=== PATIENT | female | born 1995 | race African-American/Black ===

== ENCOUNTER 2016-12-08 09:26 | Emergency (ER) | payer OTHER ==
[~2016-12-08] VITALS: Ht 154.9 cm; Wt 88.5 kg
[~2016-12-08 09:26] MED LIST: ONDA4TAB10 PO
[2016-12-08 09:35] VITALS: BP 157/61
--- NOTE | 2016-12-08 09:51 | PHYS DOC ---
Past History Past Medical History: No Pertinent History Past Surgical History: No Surgical History Alcohol Use: None Drug Use: None Adult General Chief Complaint Chief Complaint: SHOULDER INJURY HPI HPI Patient is a 21-year-old female complaining of right shoulder pain after she had a fall on the stairs 2 days ago. She tripped over her cat. Since then, her right shoulder has been painful and she has had limited use of her right arm. The pain shoots from her shoulder down toward her elbow. She has not injured this shoulder or arm before. She is right-handed. She also complains of left wrist pain. Patient has a PCP but cannot recall the name as it changed recently. Review of Systems Review of Systems Constitutional: Denies fever or chills [] Musculoskeletal: Denies back pain or neck pain [] Allergies Allergies Allergies Coded Allergies Type Severity Reaction Last Updated Verified cephalexin Allergy Unknown 09/13/16 Yes Physical Exam Physical Exam Constitutional: Well developed, well nourished, no acute distress, non-toxic appearance. Alert, mentating normally, no acute distress. HENT: Normocephalic, atraumatic, bilateral external ears normal, nose normal. [] Eyes: conjunctiva normal, no discharge. [] Neck: Normal range of motion, no tenderness, supple, no stridor. [] Skin: Warm, dry, no erythema, no rash. [] Back: No tenderness, no CVA tenderness. [] Extremities: Right shoulder without deformity, without bony tenderness. There is a large ecchymosis/hematoma over the lateral deltoid which is tender. Range of motion testing is difficult due to pain. Humerus, elbow, wrist, forearm, hand nontender to palpation without deformity. Left upper extremity shoulder, elbow, forearm unremarkable. Left wrist has some mild tenderness over the palmar aspect of the distal radius. No deformity. No snuffbox tenderness. Neurologic: Alert and oriented X 3, normal motor function, normal sensory function, no focal deficits noted. [] EKG EKG [] Radiology/Procedures Radiology/Procedures X-rays of the right shoulder and left wrist read by the radiologist. No acute fracture or other bony abnormality. [] Course & Med Decision Making Course & Med Decision Making Pertinent Labs and Imaging studies reviewed. (See chart for details) [] Dragon Disclaimer Dragon Disclaimer This chart was dictated in whole or in part using Voice Recognition software in a busy, high-work load, and often noisy Emergency Department environment. It may contain unintended and wholly unrecognized errors or omissions. Departure Departure: Impression: Primary Impression: Contusion of right shoulder, initial encounter Additional Impression: Contusion of left wrist, initial encounter Referrals: RHEA BHAGAT (PCP) Patient Instructions: Contusion, [id number] Additional Instructions: As we discussed, you have a large bruise on your right shoulder which will be painful for a week or 2. As the bruise improves, you're right shoulder should return to normal and you should be able to move it and have good strength. If your shoulder is not improving after one week, see your doctor for recheck. If you have a rotator cuff injury, you need to see orthopedics, and your doctor can refer you if recheck of your shoulder is not normal. Ice 15-20 minutes out of every 1-2 hours. Ibuprofen 800 mg every 8 hours for pain. Problem Qualifiers TOMAS FULLER MD December 08, 2016 09:51
--- NOTE | 2016-12-08 10:20 | RAD ---
Indication: Pain after a fall 2 days ago. Technique: 3 views of the right shoulder are submitted for review. No comparison is available. Findings: There is no fracture or dislocation. There is no osseous lesion. Impression: Negative for fracture.
--- NOTE | 2016-12-08 10:21 | RAD ---
Indication: Pain after fall 2 days ago. Technique: 3 views of the left wrist are submitted for review. No comparison is available. Findings: There is no fracture or dislocation. There is no soft tissue swelling. Impression: Negative for fracture.
== END 2016-12-08 10:33 | disposition home or self-care (01) ==
LOC: ER 09:26
DX: S40.011A Contusion of right shoulder, initial encounter (principal); S60.212A Contusion of left wrist, initial encounter; Z88.1 Allergy status to other antibiotic agents; W01.0XXA Fall on same level from slipping, tripping and stumbling without subsequent striking against object, initial encounter; Y93.89 Activity, other specified; Y99.8 Other external cause status; Y92.89 Other specified places as the place of occurrence of the external cause
CPT/HCPCS: 73030; 73110; 99284